=== PATIENT | male | born 1990 | race Caucasian/White ===

== ENCOUNTER 2019-10-04 11:20 | Emergency (ER) | payer BC, OTHER ==
[~2019-10-04] VITALS: Ht 167.6 cm; Wt 82.6 kg
[2019-10-04 11:46] VITALS: BP 121/61
--- NOTE | 2019-10-04 12:05 | NUR ---
Patient discharged to home in stable condition. Written and verbal after care instructions given. Patient verbalizes understanding of instruction.
== END 2019-10-04 12:05 | disposition home or self-care (01) ==
LOC: ER 11:23
DX: J45.901 Unspecified asthma with (acute) exacerbation (principal); Z76.0 Encounter for issue of repeat prescription

== ENCOUNTER 2024-02-29 00:44 | Emergency (ER) | payer OTHER ==
[~2024-02-29] VITALS: Ht 177.8 cm; Wt 102.1 kg
[2024-02-29] MEDS ORDERED: IBUPROFEN 400 MG TABLET ONE (02:58)
[2024-02-29] MEDS: IBUPROFEN 400 MG TABLET PO ONE (02:59)
[2024-02-29 04:00] VITALS: BP 111/64; TEMP 98.1; O2SAT 96
== END 2024-02-29 04:01 | disposition home or self-care (01) ==
LOC: ER 00:52
DX: S93.401A Sprain of unspecified ligament of right ankle, initial encounter (principal); Z87.09 Personal history of other diseases of the respiratory system; Z60.2 Problems related to living alone; X58.XXXA Exposure to other specified factors, initial encounter; Y93.89 Activity, other specified; Y92.89 Other specified places as the place of occurrence of the external cause; Y99.8 Other external cause status
CPT/HCPCS: 73610-TC

== ENCOUNTER 2024-05-08 21:28 | Emergency (ER) | payer OTHER ==
[~2024-05-08] VITALS: Ht 177.8 cm; Wt 102.1 kg
[2024-05-08 22:14] VITALS: BP 117/61; TEMP 98.1; O2SAT 99
== END 2024-05-09 01:58 | disposition left against medical advice (07) ==
LOC: ER 21:30
DX: R10.84 Generalized abdominal pain (principal)
CPT/HCPCS: 76700-TC

== ENCOUNTER 2024-06-22 17:38 | Emergency (ER) | payer OTHER ==
[~2024-06-22] VITALS: Ht 177.8 cm; Wt 95.3 kg
[2024-06-22 18:36] LABS: BASOPHILS # (AUTO) 0.1 K/uL (0.0-0.2); BASOPHILS % (AUTO) 0.8 % (0.0-2.0); EOSINOPHILS # (AUTO) 0.3 K/uL (0.0-0.7); EOSINOPHILS % (AUTO) 4.2 % (0.0-6.0); HEMATOCRIT 44 % (39-51); HEMOGLOBIN 15.6 g/dL (13.5-17.5); LYMPHOCYTES # (AUTO) 1.8 K/uL (0.8-4.8); LYMPHOCYTES % (AUTO) 22.4 % (20.0-44.0); MEAN CORPUSCULAR HEMOGLOBIN 33 PG (26.0-33.0); MEAN CORPUSCULAR HGB CONC 36 g/dl (31.0-36.0); MEAN CORPUSCULAR VOLUME 94 fL (80-96); MONOCYTES # (AUTO) 0.8 K/uL (0.1-1.30); MONOCYTES % (AUTO) 9.9 % (2.0-12.0); NEUTROPHILS # (AUTO) 5.2 K/uL (1.8-8.9); NEUTROPHILS % (AUTO) 62.7 % (43.0-81.0); PLATELET COUNT (AUTO) 225 K/uL (150-450); RED BLOOD CELL COUNT(AUTO) 4.66 MIL/uL (4.5-6.0); RED CELL DISTRIBUTION WIDTH 12.2 % (11.5-15.0); WHITE BLOOD COUNT (AUTO) 8.2 K/uL (4.3-11.0)
[2024-06-22 18:47] LABS: CALCIUM, SERUM 8.7 mg/dL (8.5-10.1); CARBON DIOXIDE 26 mmol/L (21-32); CHLORIDE 106 mmol/L (98-107); CREATININE 1.1 mg/dL (0.6-1.3); GLUCOSE 85 mg/dL (74-106); POTASSIUM 4.2 mmol/L (3.5-5.1); SODIUM SERUM 141 mmol/L (136-145); UREA NITROGEN, BLOOD 13 mg/dL (7-18)
[2024-06-22 18:59] LABS: NT-PRO BNP 89 pg/mL (0-125)
[2024-06-22 21:27] VITALS: BP 145/60; TEMP 98.3; O2SAT 99
== END 2024-06-22 21:28 | disposition home or self-care (01) ==
LOC: ER 17:55
DX: S93.509A Unspecified sprain of unspecified toe(s), initial encounter (principal); R07.89 Other chest pain; M94.0 Chondrocostal junction syndrome [Tietze]; F17.200 Nicotine dependence, unspecified, uncomplicated; J45.909 Unspecified asthma, uncomplicated; W19.XXXA Unspecified fall, initial encounter; Y93.9 Activity, unspecified; Y92.831 Amusement park as the place of occurrence of the external cause; Y99.8 Other external cause status
CPT/HCPCS: 36415; 71045-TC; 73630-TC; 80048-TC; 83880; 84484-TC; 85025-TC